=== PATIENT | female | born 1970 ===

== ENCOUNTER 2022-08-22 15:03 | Inpatient (IN) | payer OTHER ==
[~2022-08-22] VITALS: Ht 154.9 cm; Wt 73.9 kg
[2022-08-23] MEDS ORDERED: NORVASC5 MG PO (14:48)
[2022-08-23] MEDS ORDERED: ATORVASTATIN CA10 MG PO (14:48)
[2022-08-23] MEDS ORDERED: ZESTRIL5 MG PO (14:48)
[2022-08-23] MEDS ORDERED: PROFERRIN-FORT1 EACH PO (14:49)
[2022-08-28] MEDS ORDERED: NEURONTIN300 MG PO (07:00)
[2022-08-28] MEDS ORDERED: IBU800 MG PO (07:00)
== END 2022-08-28 09:18 | disposition home or self-care (01) | DRG 743 ==
LOC: O/R 08-27 10:07 → OB/GYN 08-27 10:45
PROVIDERS: ADMIT Obstetrics & Gynecology Gynecology; ATTEND Obstetrics & Gynecology Gynecology
PROC: 0UT74ZZ Resection of Bilateral Fallopian Tubes, Percutaneous Endoscopic Approach (ICD-10-PCS; 2022-08-27)
PROC: 0UT94ZZ Resection of Uterus, Percutaneous Endoscopic Approach (ICD-10-PCS; principal; 2022-08-27 12:45)
DX: D25.1 Intramural leiomyoma of uterus (principal); N72 Inflammatory disease of cervix uteri; Z20.822 Contact with and (suspected) exposure to COVID-19